=== PATIENT | male | born 1970 | race Hispanic/Latino ===

== ENCOUNTER 2017-09-04 16:47 | Emergency (ER) | payer OTHER ==
[2017-09-04] MEDS ORDERED: DEXAMETHASONE 10 MG/ML VIAL ONE (17:16)
[2017-09-04] MEDS ORDERED: IPRATROPIUM BROM 0.5MG/2.5ML ONE (17:24)
[2017-09-04] MEDS ORDERED: ALBUTEROL 2.5 MG/3 ML NEB SOL ONE (17:24)
--- NOTE | 2017-09-04 18:37 | RAD REPORT ---
EXAM DESCRIPTION: RAD - Chest Pa And Lat (2 Views) - 09/04/2017 6:03 pm CLINICAL HISTORY: Productive cough. COMPARISON: 11/21/2015 FINDINGS: The lungs are clear. The heart is normal in size. No displaced fractures. IMPRESSION: No acute or concerning finding suspected.
--- NOTE | 2017-09-04 18:47 | ER ---
Nurse's Notes [facility] Name: Edi Escobar Age: 47 yrs Sex: Male : 1970 Arrival Date: 09/04/2017 Time: 16:50 Bed 13 Private MD: None, None Diagnosis: Acute bronchitis Presentation: 09/04 16:53 Presenting complaint: Patient states: Productive cough with yellow sputum, SOB, pain hb with cough, and sore throat x 5 days. Transition of care: patient was not received from another setting of care. Onset of symptoms was August 31, 2017. Risk Assessment: Do you want to hurt yourself or someone else? Patient reports no desire to harm self or others. Care prior to arrival: None. 16:53 Method Of Arrival: Ambulatory hb 16:53 Acuity: SEDA 3 hb 18:52 Initial Sepsis Screen: Does the patient meet any 2 criteria? No. Patient's initial em sepsis screen is negative. Does the patient have a suspected source of infection? No. Patient's initial sepsis screen is negative. Historical: - Allergies: 16:55 No Known Allergies; hb - PMHx: 16:55 None; hb - PSHx: 16:55 None; hb - Immunization history:: Adult Immunizations up to date, Adult Immunizations. - Social history:: Smoking status: Patient/guardian denies using tobacco. - Ebola Screening: : No symptoms or risks identified at this time. Screenin:03 Abuse screen: Denies threats or abuse. Denies injuries from another. Nutritional aj1 screening: No deficits noted. Tuberculosis screening: No symptoms or risk factors identified. Fall Risk None identified. Assessment: 17:03 General: Appears in no apparent distress. uncomfortable, Behavior is calm, cooperative, aj1 appropriate for age. Pain: Complains of pain in chest Pain does not radiate. Pain currently is 6 out of 10 on a pain scale. at worst was 10 out of 10 on a pain scale. Quality of pain is described as sharp, Is intermittent, Alleviated by nothing. Aggravated by coughing, deep breathing. Neuro: Level of Consciousness is awake, alert, obeys commands, Oriented to person, place, time, situation, Speech is normal, Facial symmetry appears normal. Cardiovascular: Heart tones S1 S2 present Patient's skin is warm and dry. Chest pain is described as Pain is 6 out of 10 on a pain scale. quality is sharp, is located in entire chest wall is aggravated by breathing, coughing. Respiratory: Reports shortness of breath cough that is productive, persistent Airway is patent Respiratory effort is even, unlabored, Respiratory pattern is regular, symmetrical, Breath sounds are clear bilaterally. GI: No signs and/or symptoms were reported involving the gastrointestinal system. : No signs and/or symptoms were reported regarding the genitourinary system. EENT: Throat is reddened. Derm: No signs and/or symptoms reported regarding the dermatologic system. Skin is pink, warm \T\ dry. normal. Musculoskeletal: No signs and/or symptoms reported regarding the musculoskeletal system. Circulation, motion, and sensation intact. 18:05 Reassessment: Patient appears in no apparent distress at this time. Patient and/or em family updated on plan of care and expected duration. Pain level reassessed. Patient is alert, oriented x 3, equal unlabored respirations, skin warm/dry/pink. 19:02 Reassessment: Patient appears in no apparent distress at this time. Patient and/or em family updated on plan of care and expected duration. Pain level reassessed. Patient is alert, oriented x 3, equal unlabored respirations, skin warm/dry/pink. Patient states feeling better. Vital Signs: 16:54 BP 147 / 97; Pulse 112; Resp 22; Temp 99; Pulse Ox 98% on R/A; Weight 74.84 kg; Height hb 5 ft. 4 in. (162.56 cm); Pain 10/10; 18:41 BP 125 / 78; Pulse 108; Resp 18; Pulse Ox 99% on R/A; ag 16:54 Body Mass Index 28.32 (74.84 kg, 162.56 cm) ED Course: 16:50 Patient arrived in ED. mr 16:50 None, None is Private Physician. mr 16:54 Triage completed. hb 16:55 Arm band placed on right wrist. 16:56 Jenifer Valerio, KEDAR is Primary Nurse. [facility] 16:57 Trace Thacker PA is PHCP. [facility] 16:57 Adelfo Krishnamurthy MD is Attending Physician. [facility] 17:03 Patient has correct armband on for positive identification. Bed in low position. Call aj1 light in reach. Side rails up X 1. 17:03 No provider procedures requiring assistance completed. aj1 18:02 Chest Pa And Lat (2 Views) XRAY In Process Unspecified. EDMS 18:47 Av Coughlin MD is Referral Physician. [facility] 18:52 Patient did not have IV access during this emergency room visit. em Administered Medications: 17:28 Drug: Dexamethasone 10 mg Route: IM; Site: right deltoid; aj1 18:39 Follow up: Response: No adverse reaction em 17:28 Drug: DuoNeb (3:1) (2.5 mg - 0.5 mg) 3 ml Route: Nebulizer; aj1 18:38 Follow up: Response: No adverse reaction em Outcome: 18:47 Discharge ordered by . [facility] 18:52 Discharged to home ambulatory. em 18:52 Condition: good 18:52 Discharge instructions given to patient, Instructed on discharge instructions, follow up and referral plans. medication usage. 19:03 Patient left the ED. em Signatures: Dispatcher [employer] Jenifer Stoddard, KEDAR RN aj1 Trace Thacker PA PA [facility] Shanelle Mitchell mr Gabriel Rodriguez, SIGNAL INTELLIGENCE/ELECTRONIC WARFARE SIGNAL INTELLIGENCE/ELECTRONIC WARFARE em Kathe Nunez Heather, RN RN hb
--- NOTE | 2017-09-04 18:47 | EDPHYS ---
Physician Documentation [facility] Name: Edi Escobar Age: 47 yrs Sex: Male : 1970 Arrival Date: 09/04/2017 Time: 16:50 Bed 13 Private MD: None, None ED Physician Adelfo Krishnamurthy HPI: 09/04 17:09 This 47 yrs old Male presents to ER via Ambulatory with complaints of Sore jmm Throat. 17:09 The patient presents with sore throat. The patient describes throat pain as constant. jmm Onset: The symptoms/episode began/occurred gradually, 4 day(s) ago. Associated signs and symptoms: Pertinent positives: chills, cough, Pertinent negatives fever. This is a 47 year old male with no chronic medical conditions that presents to the ED with sore throat and cough beginning 4 days ago. Patient states he recently returned from [place]. Patient states having productive cough. . Historical: - Allergies: 16:55 No Known Allergies; hb - PMHx: 16:55 None; hb - PSHx: 16:55 None; hb - Immunization history:: Adult Immunizations up to date, Adult Immunizations. - Social history:: Smoking status: Patient/guardian denies using tobacco. - Ebola Screening: : No symptoms or risks identified at this time. ROS: 17:09 Cardiovascular: Negative for chest pain, palpitations, and edema. jmm 17:09 Abdomen/GI: Negative for abdominal pain, nausea, vomiting, diarrhea, and constipation, Back: Negative for injury and pain, : Negative for injury, bleeding, discharge, and swelling, MS/Extremity: Negative for injury and deformity, Skin: Negative for injury, rash, and discoloration, Neuro: Negative for headache, weakness, numbness, tingling, and seizure. 17:09 Constitutional: Positive for body aches, chills. 17:09 ENT: Positive for sore throat. 17:09 Neck: Positive for swollen nodes. 17:09 Respiratory: Positive for cough. 17:09 All other systems are negative. Exam: 17:09 Constitutional: This is a well developed, well nourished patient who is awake, alert, jmm and in no acute distress. Head/Face: atraumatic. Eyes: EOMI, no conjunctival erythema appreciated Cardiovascular: Regular rate and rhythm. No gallops, murmurs, or rubs. Full/Equal distal pulses. Respiratory: Lungs have equal breath sounds bilaterally, clear to auscultation. No rales, rhonchi or wheezes noted. No increased work of breathing, no retractions or nasal flaring. 17:09 Back: ROM is normal. 17:09 Musculoskeletal/extremity: ROM: intact in all extremities. 17:09 Skin: Appearance: Color: normal in color. 17:09 Neuro: Orientation: is normal, Mentation: is normal, Memory: is normal, Gait: is steady. Vital Signs: 16:54 BP 147 / 97; Pulse 112; Resp 22; Temp 99; Pulse Ox 98% on R/A; Weight 74.84 kg; Height hb 5 ft. 4 in. (162.56 cm); Pain 10/10; 18:41 BP 125 / 78; Pulse 108; Resp 18; Pulse Ox 99% on R/A; ag 16:54 Body Mass Index 28.32 (74.84 kg, 162.56 cm) hb MDM: 17:07 Patient medically screened. [facility] 17:18 Differential diagnosis: bronchitis, pharyngitis, pneumonia. Data reviewed: vital signs, [facility] nurses notes. 18:45 ED course: After administration of duoneb, the patient states symptoms have improved. [facility] The patient is alert and non toxic in appearance on discharge. Patient given oral abx and advised to follow up with PCP. Patient given strict return precautions. . 09/04 17:08 Order name: Strep; Complete Time: 18:01 [facility] 09/04 17:55 Order name: Throat Culture [facility] 09/04 17:08 Order name: Chest Pa And Lat (2 Views) XRAY; Complete Time: 18:39 [facility] Administered Medications: 17:28 Drug: Dexamethasone 10 mg Route: IM; Site: right deltoid; aj1 18:39 Follow up: Response: No adverse reaction em 17:28 Drug: DuoNeb (3:1) (2.5 mg - 0.5 mg) 3 ml Route: Nebulizer; aj1 18:38 Follow up: Response: No adverse reaction em Disposition: 09/04/17 18:47 Discharged to Home. Impression: Acute bronchitis. - Condition is Stable. - Discharge Instructions: Acute Bronchitis. - Prescriptions for Bromfed DM 2- 30-10 mg/5 mL Oral syrup - take 10 milliliter by ORAL route every 4 hours; 200 milliliter. Zithromax Z- Magan 250 mg Oral Tablet - take 1 tablet by ORAL route as directed for 5 days Day 1 - take two (2) tablets one time. Day 2, 3, 4 , 5 take one (1) tablet once daily.; 6 tablet. Albuterol Sulfate 90 mcg/actuation - inhale 1-2 puff by INHALATION route every 4-6 hours; 1 Inhaler. - Medication Reconciliation Form, Thank You Letter, Antibiotic Education, Prescription Opioid Use form. - Follow up: Av Coughlin MD; When: 1 - 2 days; Reason: Continuance of care. - Notes: Please follow up with your primary care provider in 1 to 2 days. Please return to the ED if you develop shortness of breath, vomiting, chest pain or any other concerning symptoms. Addendum: 09/06/2017 09:03 Co-signature as Attending Physician, Adelfo Krishnamurthy MD I agree with the assessment and c [facility] plan of care. Signatures: Dispatcher [employer] Jenifer Stoddard RN RN aj1 Adelfo Krishnamurthy MD MD cha Mickail, Joel, PA PA Gabriel Ramirez, INTERACTIVE VIDEO TECHNICIAN INTERACTIVE VIDEO TECHNICIAN em Marcelina Calvo, KEDAR RN Corrections: (The following items were deleted from the chart) 09/04 19:03 18:47 09/04/2017 18:47 Discharged to Home. Impression: Acute bronchitis. Condition is em Stable. Forms are Medication Reconciliation Form, Thank You Letter, Antibiotic Education, Prescription Opioid Use. Follow up: Av Coughlin; When: 1 - 2 days; Reason: Continuance of care. abhi
== END 2017-09-04 19:03 | disposition home or self-care (01) ==
LOC: ER 16:47
DX: J20.9 Acute bronchitis, unspecified (principal)
CPT/HCPCS: 71046; 87070; 87081; 94640; 96372; 99284; J1100